=== PATIENT | male | born 1965 | race Caucasian/White ===

== ENCOUNTER 2016-12-05 06:53 | Observation (INO) | payer BC ==
--- NOTE | 2016-12-02 10:53 | PREOP HP ---
DATE OF SERVICE: 12/05/2016 HISTORY OF PRESENT ILLNESS: The patient is a 51-year-old man, who is having difficulty with low back pain and pain which radiates in the left lateral thigh and leg. The problem started in 2002. He said he underwent a fusion at that time, but it did not help him. He rates his pain as a 7/10. Sitting or standing for too long, exacerbates his pain. He did get relief by lying down. He takes morphine. Epidural steroid injections and physical therapy have been, if no help. He does use a cane with ambulation. When I saw him last, I ordered a lumbar myelogram to help elucidate the situation. PAST MEDICAL HISTORY: Angina, arthritis, gout, chest pain, headaches/migraines, head/neck injury, heart trouble, MANAGED CARE MANAGER, hypertension, parathyroid disease, ____ infection, swelling of limbs. PAST SURGICAL HISTORY: Lumbar surgery at L4-L5 in ____, lumbar surgery at L5-S1 in 2002, sphincterotomy in 2011 and cardiac ablation in 2012. FAMILY HISTORY: Aneurysm, heart disease, hypertension, NH at an early age, migraine headaches and spine problems. SOCIAL HISTORY: . Rarely exercises, denies substance abuse. Former smoker. Drinks alcohol one to two times per month. Drinks soda daily. ALLERGIES: No known drug allergies. CURRENT MEDICATIONS: Metoprolol, duloxetine, pravastatin, morphine, hydrochlorothiazide and baby aspirin. REVIEW OF SYSTEMS: A 12-point review of systems was obtained and is noncontributory except for that mentioned above. PHYSICAL EXAMINATION: NEUROSURGERY EXAMINATION: GENERAL APPEARANCE: Alert, pleasant, no acute distress. HEAD: Normocephalic and atraumatic. SKIN: Warm and dry. MUSCULOSKELETAL: Lumbar paraspinal muscle bulk is normal, restricted range of motion of lumbar spine, [id number] tenderness of lower lumbar spine with palpation, normal range of motion of the lower extremities bilaterally. EXTREMITIES: No clubbing, cyanosis, or edema. NEUROLOGIC: Alert and oriented x 3, normal recent and remote memory, strength 5/5 in bilateral lower extremities, sensory was intact to light touch in the lower extremities bilaterally, reflexes were trace and symmetric in the bilateral lower extremities, straight leg raising on the left was associated with left buttock pain, normal gait. IMAGING: Reviewed. I reviewed a lumbar myelogram and post-myelogram CT scan. On those studies, there appeared to be a left S1 nerve root swelling. At L5-S1, there was a 2 mm degenerative retrolisthesis. There was a chronic disk herniation, which causes impression and posterior displacement of the left S1 nerve root. ASSESSMENT: 1. Intervertebral disk disorder with radiculopathy, lumbosacral. 2. Spinal stenosis, lumbosacral region. PLAN: I feel the problems at L5-S1 are responsible for some portion of his pain. He does appear to have a solid fusion at L4-L5. I have recommended removal of hardware at L4-L5 combined with the microsurgery at L5-S1 to decompress the left S1 nerve root. I discussed this with him in detail. I also explained that another option, which was reasonable would be for him to have spinal cord stimulator placed. He would like to proceed with surgery. We will make the arrangements. ANGELITA DESAI MD DR: ANGEL/yeison JOB#: [id number] / [id number]
[~2016-12-05] VITALS: Ht 175.3 cm; Wt 127.5 kg
[2016-12-05] VITALS (11 sets, daily range): BP systolic 86–111; BP diastolic 37–62
[~2016-12-05 06:53] MED LIST: DULO60CA6 PO; FEXO180T81 PO; HYDR25TA9 PO; METO50TA2 PO; MORP30TA3 PO; PRAV40TA2 PO
[2016-12-05] MEDS ORDERED: IV RINGERS,LACTATED 1000ML 1,000 ML IV SCH (07:00)
[2016-12-05] MEDS ORDERED: fentaNYL PF VIAL 100 MCG/2 ML VIAL IV PRN ×2 (07:00→12:00)
[2016-12-05] MEDS ORDERED: LIDOCAINE 1% 1 ML SYRINGE. ID PRN (07:00)
[2016-12-05] MEDS ORDERED: HYDROmorphone 2 MG/ML VIAL IV PRN (07:00)
[2016-12-05] MEDS ORDERED: ONDANSETRON PF 4 MG/2 ML VIAL. IV PRN ×2 (07:00→12:00)
[2016-12-05] MEDS ORDERED: PROCHLORPERAZINE 10 MG/2 ML VIAL. IV PRN (07:00)
[2016-12-05] MEDS ORDERED: MORPHINE SULFATE 2 MG/ML DISP.SYRIN. IV PRN (07:00)
[2016-12-05] MEDS ORDERED: BUPIVAC MPF-EPI 0.5%-1:200000 30 ML VIAL. ONE (07:21)
[2016-12-05] MEDS ORDERED: GELATIN SPONGE SIZE 100. ONE (07:21)
[2016-12-05] MEDS ORDERED: KETOROLAC 60 MG/2 ML INJ FOR OR. ONE (07:21)
[2016-12-05] MEDS ORDERED: THROMBIN TOPICAL 20,000 UNIT SPRAY.SYRN KIT TP ONE (07:22)
[2016-12-05] MEDS ORDERED: IV RINGERS,LACTATED 1000ML 1,000 ML IV ONE (07:45)
[2016-12-05] MEDS ORDERED: BACITRACIN 50,000 UNIT in IV NORMAL SALINE 1000ML BAG 1,000 ML IRR ONE (08:00)
[2016-12-05] MEDS ORDERED: REMIFENTANIL 2 MG VIAL. IV ONE (08:22)
[2016-12-05] MEDS ORDERED: fentaNYL PF VIAL 250 MCG/5 ML VIAL ONE (08:22)
[2016-12-05] MEDS ORDERED: MIDAZOLAM HCL/PF 2 MG/2 ML VIAL. ONE (08:22)
[2016-12-05] MEDS ORDERED: ONDANSETRON PF 4 MG/2 ML VIAL. ONE (08:23)
[2016-12-05] MEDS ORDERED: LIDOCAINE 2% 100 MG/5 ML SYRINGE. ONE (08:23)
[2016-12-05] MEDS ORDERED: PROPOFOL 50 ML IV ONE (08:23)
[2016-12-05] MEDS ORDERED: DEXAMETHASONE SOD PHOS 20 MG/5 ML VIAL. ONE (08:23)
[2016-12-05] MEDS ORDERED: PROPOFOL 20 ML IV ONE (08:23)
[2016-12-05] MEDS ORDERED: ROCURONIUM 50 MG/5 ML VIAL. ONE (08:26)
[2016-12-05] MEDS ORDERED: MINERAL OIL/PETROLATUM,WHITE OPHTH OINT 3.5GM TUBE. ONE (08:27)
[2016-12-05] MEDS ORDERED: SCOPOLAMINE 1.5MG PATCH. TD ONE ×2 (08:35→08:45)
[2016-12-05] MEDS ORDERED: KETAMINE HCL 500 MG/10 ML VIAL. ONE (09:04)
[2016-12-05] MEDS ORDERED: ePHEDrine PF IN SALINE 50 MG/5 ML DISP.SYRIN IV ONE (09:46)
[2016-12-05] MEDS ORDERED: PHENYLEPHRINE 10 MG/ML VIAL. ONE ×2 (09:50)
[2016-12-05] MEDS ORDERED: GLYCOPYRROLATE 1 MG/5 ML VIAL. ONE (11:22)
[2016-12-05] MEDS ORDERED: NEOSTIGMINE METHYLSULFATE 5 MG/5 ML SYRINGE. ONE (11:22)
[2016-12-05] MEDS ORDERED: CALCIUM CARBONATE 500 MG TAB.CHEW PO PRN (12:00)
[2016-12-05] MEDS ORDERED: ACETAMINOPHEN 325 MG TABLET. PO PRN (12:00)
[2016-12-05] MEDS ORDERED: MAG HYDROX/ALUMINUM HYD/SIMETH 30 ML ORAL.SUSP PO PRN (12:00)
[2016-12-05] MEDS ORDERED: diphenhydrAMINE 50 MG/ML VIAL IV PRN (12:00)
[2016-12-05] MEDS ORDERED: MAGNESIUM HYDROXIDE 2,400 MG/30 ML ORAL.SUSP. PO PRN (12:00)
[2016-12-05] MEDS ORDERED: diphenhydrAMINE HCL 25 MG CAPSULE PO PRN (12:00)
[2016-12-05] MEDS ORDERED: ZOLPIDEM 5 MG TABLET. PO PRN (12:00)
[2016-12-05] MEDS ORDERED: 0.9 % SODIUM CHLORIDE 10 ML DISP.SYRIN. IV PRN (12:00)
[2016-12-05] MEDS: fentaNYL PF VIAL 100 MCG/2 ML VIAL IV PRN ×5 (12:29→14:38)
--- NOTE | 2016-12-05 12:53 | OP ---
DATE OF SURGERY: 12/05/2016 PREOPERATIVE DIAGNOSIS: Recurrent herniated disc L5-S1 with hypertrophic facet and nerve root compression. POSTOPERATIVE DIAGNOSIS: Recurrent herniated disc L5-S1 with hypertrophic facet and nerve root compression. OPERATION PERFORMED: Hemilaminotomy and microdiscectomy L5-S1, left. The operation done with EMG monitoring, fluoroscopy, microscopic dissection. SURGEON: Feliz Desai M.D. BRANCH OFFICE ADMINISTRATOR: Bashir Ramirez MD, assisted with surgery, assisted with the exposure, the micro decompression and microdiscectomy as well as the closure. OPERATIVE INDICATIONS: The patient is a very pleasant 51-year-old man who in the past had an instrumented fusion at L4-L5 along with microdisc surgery at L5- S1 on the left. He did well from that surgery, but then developed intractable recurrent pain and was found to have left-sided S1 nerve root swelling on the imaging studies. He failed conservative measures. I recommended lumbar microsurgery. I spoke with him about the surgery and the risks involved. He understood and he wished to go ahead. DESCRIPTION OF PROCEDURE: Following general endotracheal anesthesia, the patient was positioned prone on the Roshan table. His lumbar region was prepped and draped in standard fashion. SHLOMO hose and AV impulse boots were applied for DVT prophylaxis. A microscope was draped. Fluoroscopy was draped and brought into field. Monitoring was established. Ancef 2 grams were given less than 1 hour prior to initiation of surgery. Using fluoroscopic guidance, an incision was made over the L5-S1 interspace and was somewhat slightly superiorly to that to expose the hardware at L4-L5 is necessary to remove. I dissected down to the fascia, which I opened and reflected to the left, I placed a [place] micro disc retractor. I was able to position the retractor and such a way that I did not have to remove the hardware and I had an excellent exposure. I entered and switching to a Little retractor to gain better exposure brought in the microscope and the remainder of surgery done with microscope using microscopic technique. I enlarged his previous hemilaminotomy superiorly, laterally and inferiorly. There was significant scarring over the dura and the exiting S1 root and I worked down and exposed the root and the lateral edge of the dura. I gently reflected this medially exposing a large chronic calcified herniated disc. There were some soft component and I incised the ligament annulus and I performed the discectomy and as I worked, the root became much more free and mobile. I explored carefully. I irrigated copiously, explored carefully and I assured myself that there were no other issues that need to be addressed. I did enlarge previous foraminotomy inferiorly. I did remove thickened ligamentum flavum from the outer aspect of the dura with this lateral aspect and I felt that I had an excellent decompression. I removed the retractor. Hemostasis was excellent. I closed the fascia with absorbable sutures after irrigation. The fat was closed, the adipose tissue was closed in separate layer and the skin was closed with 4-0 subcuticular stitch. The surgery went very well. I was quite pleased with the operation. FELIZ DESAI MD DR: ANGEL/yeison JOB#: [id number] / [id number] ANDRA
[2016-12-05] MEDS: POTASSIUM CL 20MEQ D5-0.45NACL 1,000 ML IV SCH (14:37)
[2016-12-05] MEDS: METHOCARBAMOL 750 MG TABLET PO SCH ×2 (14:38→21:42)
[2016-12-05] MEDS: METOPROLOL TART IMMED RELEASE 50 MG TABLET. PO SCH ×2 (15:00→21:00)
[2016-12-05] MEDS ORDERED: DULoxetine HCL 30 MG CAPSULE.DR PO SCH (21:00)
[2016-12-05] MEDS ORDERED: ATORVASTATIN CALCIUM 10 MG TABLET. PO SCH (21:00)
[2016-12-05] MEDS: MORPHINE ER 30 MG TABLET.ER PO SCH (21:43)
[2016-12-05] MEDS: DOCUSATE SODIUM 100 MG CAPSULE. PO SCH (21:43)
[2016-12-06] MEDS: POTASSIUM CL 20MEQ D5-0.45NACL 1,000 ML IV SCH (01:12)
[2016-12-06 03:00] VITALS: BP 97/56
--- NOTE | 2016-12-06 05:00 | ACF ---
Admission Forms Criteria MUSCULOSKELETAL DISEASE GRG Clinical Indications for Admission to Inpatient Care (Place 'X' for any and all applicable criteria): Hospital admission is needed for appropriate care of the patient because of 1 or more of the following: [ ]I. Fracture, dislocation, or other musculoskeletal injury requiring inpatient care(medical) as indicated by 1 or more of the following(4)(5)(6)(7) [ ]a) Vertebral fracture requiring observation for instability or neurologic compromise (8) [ ]b) Compartment syndrome (proven or cannot be ruled out during observation level of care) (9) [ ]c) Limb-threatening injury [ ]d) Major injury requiring inpatient stabilization such as traction initiation or external fixation before internal fixation or closure of complex or open fracture [ ]e) Major injury requiring inpatient treatment after emergency or observation level care (as appropriate) [ ]f) Severe pain requiring acute inpatient management [ ]g) Injury with suspicion of abuse or neglect (eg., child, dependent elderly) [ ]II. Newly diagnosed or suspected bone, joint, or orthopedic device infection (e.g., osteomyelitis, septic arthritis) needing 1 or more of the following(1)(2)(3) [ ]a) IV antibiotics that cannot be initiated in other than inpatient setting (e.g., patient too unstable or home infusion not available) [ ]b) Device removal or replacement [ ]c) Bone or soft tissue debridement [ ]d) Joint drainage (drain placement or repetitive aspirations) [ ]III. Severe rheumatologic disease (e.g., systemic lupus erythematosus, rheumatoid arthritis) with complications or comorbidities (Also use Optimal Recovery Care Criteria or General Recovery Criteria as appropriate on the basis of predominant condition), including 1 or more of the following( 10)(11)(12)(13) [ ]a) Severe infection (e.g., CHARGE PREPARATION TECHNICIAN infection, sepsis) (14) [ ]b) Respiratory complications, including 1 or more of the following : [ ]i) Pleural effusion with respiratory compromise [ ]ii) Pulmonary hypertension with congestive failure [ ]iii) Respiratory failure [ ]iv) Pulmonary hemorrhage (15) [ ]c) Hematologic disease, including 1 or more of the following: [ ]i) Coagulopathy with bleeding [ ]ii) Thrombosis with hypercoagulable state [ ]iii) Thrombotic thrombocytopenic purpura [ ]d) Cerebritis with seizures, psychosis, or other severe abnormalities [ ]e) Vertebral destruction with monitoring needed for cervical myelopathy& possible respiratory compromise [ ]f) Exacerbation that requires inpatient treatment (e.g., intravenous immunosuppression) (16) [ ]g) Acute renal failure [ ]h) Cerebritis with seizures, psychosis, Altered mental status, or other neurologic abnormalities [ ]i) Pericardial effusion with tamponade [ ]j) Vertebral destruction, with monitoring needed for cervical myelopathy and possible respiratory compromise [ ]IV. Severe vasculitis with complications or comorbidities (Also use Optimal Recovery Care Criteria General Recovery Criteria as appropriate on the basis of predominant condition), including 1 or more of the following(11)(12)(17)(18)(19)(20) [ ]a) Exacerbation that requires inpatient treatment (e.g., intravenous immunosuppression) (19)(21) [ ]b) Pulmonary hemorrhage (15) [ ]c) CHARGE PREPARATION TECHNICIAN vasculitis with seizures, psychosis, Altered mental status that is severe or persistent, or other severe abnormalities (22) [ ]d) Cerebral infarction [ ]e) Gastrointestinal ischemia [ ]f) Gangrene or threatened amputation [ ]g) Renal failure (16) [ ]h) Other significant complications of vasculitis ( eg., tissue or organ ischemia, organ dysfunction ) [ ]V. Severe myopathy as indicated by 1 or more of the following (28)(29) [ ]a) New onset of airway compromise or inability to swallow [ ]b) Respiratory deterioration with observation needed for impending respiratory failure [ ]c) Exacerbation that requires inpatient treatment (e.g., intravenous immunosuppression) [ ]. Severe crystal gout (arthropathy) indicated by 1 or more of the following (23)(24) [ ]a) Severe pain requiring acute inpatient management [ ]b) Exacerbation that requires inpatient treatment (e.g., intravenous treatment) [ ]VII.Rhabdomyolysis and 1 or more of the following (25)(26)(27) [ ]a) Acute renal failure [ ]b) Need for intravenous hydration after emergency or observation level care (as appropriate) [ ]c) Inability to maintain oral hydration [ ]d) Change in mental status [ ]e) Electrolyte abnormality that remains after emergency or observation level care (as appropriate) [ ]VIII Post amputation complication, as indicated by ANY ONE of the following [ ]a) Infection [ ]b) Dehiscence [ ]c) Myodesis failure [ ]IX. Severe pain requiring acute inpatient management due to musculoskeletal condition [ ]X. Musculoskeletal Disease and ALL of the following: [ ]a) Symptom or finding for which emergency and observation care have failed or are not considered appropriate (Use General Criteria: Observation Care as appropriate) [ ]b) Presence of ANY ONE of the following [ ]i) A General Admission Criteria [ ]ii) A Pediatric General Admission Criteria The original [facility] content created by [employer] has been revised. The portions of the content which have been revised are identified through the use of italic text or in bold, and [facility] has neither reviewed nor approved the modified material. All other unmodified content is copyright [facility]. Please see references footnoted in the original [facility] edition 2016 PÉREZ JEFFERSON December 06, 2016 05:00
[2016-12-06 07:00] VITALS: BP 103/67
[2016-12-06 08:32] VITALS: BP 103/67
[2016-12-06] MEDS: METOPROLOL TART IMMED RELEASE 50 MG TABLET. PO SCH (08:32)
[2016-12-06] MEDS: METHOCARBAMOL 750 MG TABLET PO SCH (08:34)
[2016-12-06] MEDS: MORPHINE ER 30 MG TABLET.ER PO SCH (08:35)
[2016-12-06] MEDS: DOCUSATE SODIUM 100 MG CAPSULE. PO SCH (08:35)
[2016-12-06] MEDS ORDERED: CETIRIZINE HCL 10 MG TABLET. PO SCH (09:00)
[2016-12-06] MEDS ORDERED: hydroCHLOROthiazide 25 MG TABLET PO SCH (09:00)
--- NOTE | 2016-12-06 10:04 | DISCH ---
DISCHARGE INSTRUCTIONS Condition on Discharge Condition on Discharge: Stable Activity After Discharge Activity Instructions for Disc: Activity as tolerated, Avoid exertion Other activity instructions: no driving for a week Bathing Instructions: Shower-keep dressing dry Lifting Instructions after Dis: No heavy lifting, No pulling or pushing, Do not lift >10 pounds Diet after Discharge Additional Diet Restrictions: resume home diet Wound Incision Care Wound/Incision Care: Ice to area for comfort Other wound/incision instructi: may remove dressing in 48 hrs if dry then may shower- no soaking Contacting the after DC Call your doctor for: Concerns you may have Follow-Up Follow up with: Dr. Desai's nurse in 2 weeks [phone] ANGELITA DESAI MD December 06, 2016 10:04
[2016-12-06] MEDS ORDERED: METH750T2 PO (10:06)
[2016-12-06] MEDS ORDERED: DOCU-27 PO (10:06)
--- NOTE | 2016-12-06 10:07 | PDOC ---
PROGRESS NOTES Subjective Subjective POD #1 Ambulating in szymanski leg pain resolved Objective Objective Vital Signs Date Time Temp Pulse Resp B/P (MAP) Pulse Ox O2 Delivery O2 Flow Rate FiO2 12/06/16 08:35 Nasal Cannula 12/06/16 08:32 72 103/67 12/06/16 07:50 1.0 12/06/16 07:00 98.3 98.3 12/06/16 07:00 18 95 Intake and Output 12/06/16 07:00 Intake Total 3030 ml Output Total 1075 ml Balance 1955 ml Intake Oral 480 ml IV Total 2550 ml Output Urine Total 1050 ml Estimated Blood Loss 25 ml # Voids 1 Physical Exam General: Alert, Oriented X3, Cooperative, No acute distress MUSCULOSKELETAL: Other (INGRAM) Neuro: Normal speech Psych/Mental Status: Mental status NL Skin: Other (dressing C,D,I, flat) Plan Plan of Care may dc home f/u 2 weeks Comment Review of Relevant I have reviewed the following items aidee (where applicable) has been applied. Labs Laboratory Tests Test 12/05/16 07:29 Potassium Level 3.3 mmol/L (3.5-5.1) Medications Current Medications Ondansetron HCl (Zofran) 4 mg PRN Q6HRS PRN IV NAUSEA/VOMITING; Start 12/05/16 at 07:00; Stop 12/05/16 at 18:00; Status DC Fentanyl Citrate (Fentanyl 2ml Vial) 25 mcg PRN Q5MIN PRN IV MILD PAIN; Start 12/05/16 at 07:00; Stop 12/05/16 at 18:00; Status DC Fentanyl Citrate (Fentanyl 2ml Vial) 50 mcg PRN Q5MIN PRN IV MODERATE PAIN Last administered on 12/05/16t 14:38; Start 12/05/16 at 07:00; Stop 12/05/16 at 18: 00; Status DC Morphine Sulfate 1 mg PRN Q10MIN PRN IV SEVERE PAIN; Start 12/05/16 at 07:00; Stop 12/05/16 at 18:00; Status DC Ringer's Solution 1,000 ml @ 30 mls/hr Q24H IV ; Start 12/05/16 at 07:00; Stop 12/05/16 at 18:59; Status Cancel Lidocaine HCl 2 ml PRN 1X PRN ID PRIOR TO IV START; Start 12/05/16 at 07:00; Stop 12/05/16 at 18:00; Status DC Hydromorphone HCl (Dilaudid) 0.5 mg PRN Q10MIN PRN IV SEV PAIN, Second choice; Start 12/05/16 at 07:00; Stop 12/05/16 at 18:00; Status DC Prochlorperazine Edisylate (Compazine) 5 mg PACU PRN PRN IV NAUSEA, MRX1; Start 12/05/16 at 07:00; Stop 12/05/16 at 18:00; Status DC Cefazolin Sodium/ Dextrose 50 ml @ 100 mls/hr 1X PREOP PRN IV Prior to Surgery Last administered on 12/05/16 09:02; Start 12/05/16 at 08:00 Bacitracin 21764 unit/Sodium Chloride 1,000 ml @ 1,000 mls/hr 1X PERIOP ONCE IRR Last administered on 12/05/16 09:36; Start 12/05/16 at 08:00; Stop 12/05/16 at 08:59; Status DC Bupivacaine HCl/ Epinephrine Bitart (Sensorcain-Mpf Epi 0.5%-1:[id number]) 30 ml STK -MED ONCE .ROUTE Last administered on 12/05/16 09:36; Start 12/05/16 at 07:21; Stop 12/05/16 at 07:22; Status DC Gelatin (Gelfoam Size 100) 1 each STK-MED ONCE .ROUTE Last administered on 12/05 09:36; Start 12/05/16 at 07:21; Stop 12/05/16 at 07:22; Status DC Ketorolac Tromethamine (Toradol For Or Only) 60 mg STK-MED ONCE .ROUTE Last administered on 12/05/16 09:36; Start 12/05/16 at 07:21; Stop 12/05/16 at 07:22; Status DC Thrombin 20,000 unit STK-MED ONCE TP Last administered on 12/05/16 09:36; Start 12/05/16 at 07:22; Stop 12/05/16 at 07:23; Status DC Ringer's Solution 1,000 ml @ 75 mls/hr 1X ONCE IV Last administered on 07:44; Start 12/05/16 at 07:45; Stop 12/05/16 at 21:04; Status DC Midazolam HCl (Versed) 2 mg STK-MED ONCE .ROUTE ; Start 12/05/16 at 08:22; Stop 12/05/16 at 08:23; Status DC Remifentanil HCl (Ultiva) 2 mg STK-MED ONCE IV ; Start 12/05/16 at 08:22; Stop at 08:23; Status DC Fentanyl Citrate (Fentanyl 5ml Vial) 250 mcg STK-MED ONCE .ROUTE ; Start at 08:22; Stop 12/05/16 at 08:23; Status DC Propofol 20 ml @ As Directed STK-MED ONCE IV ; Start 12/05/16 at 08:23; Stop 12/05 at 08:24; Status DC Lidocaine HCl (Lidocaine HCl 2% Abboject) 100 mg STK-MED ONCE .ROUTE ; Start 12/05/16 at 08:23; Stop 12/05/16 at 08:24; Status DC Propofol 50 ml @ As Directed STK-MED ONCE IV ; Start 12/05/16 at 08:23; Stop 12/05 at 08:24; Status DC Dexamethasone Sodium Phosphate (Decadron) 20 mg STK-MED ONCE .ROUTE ; Start 12/05 at 08:23; Stop 12/05/16 at 08:24; Status DC Ondansetron HCl (Zofran) 4 mg STK-MED ONCE .ROUTE ; Start 12/05/16 at 08:23; Stop 12/05/16 at 08:24; Status DC Rocuronium [place] (Zemuron) 50 mg STK-MED ONCE .ROUTE ; Start 12/05/16 at 08:26 ; Stop 12/05/16 at 08:27; Status DC Multi-Ingred Cream/Lotion/Oil/ Oint (Artificial Tears Eye Oint) 7 marsha STK-MED ONCE .ROUTE ; Start 12/05/16 at 08:27; Stop 12/05/16 at 08:28; Status DC Scopolamine (Transderm-Scop) 1 patch 1X ONCE TD Last administered on 12/05/16t 08:00; Start 12/05/16 at 08:45; Stop 12/05/16 at 08:46; Status DC Scopolamine (Transderm-Scop) 1 patch STK-MED ONCE TD ; Start 12/05/16 at 08:35; Stop 12/05/16 at 08:36; Status DC Ketamine HCl 500 mg STK-MED ONCE .ROUTE ; Start 12/05/16 at 09:04; Stop 12/05/16 at 09:05; Status DC Ephedrine Sulfate 50 mg STK-MED ONCE IV ; Start 12/05/16 at 09:46; Stop 12/05/16 at 09:47; Status DC Phenylephrine HCl (Tyson-Synephrine Inj) 10 mg STK-MED ONCE .ROUTE ; Start at 09:50; Stop 12/05/16 at 09:51; Status DC Phenylephrine HCl (Tyson-Synephrine Inj) 10 mg STK-MED ONCE .ROUTE ; Start at 09:50; Stop 12/05/16 at 09:51; Status DC Glycopyrrolate (Robinul) 1 mg STK-MED ONCE .ROUTE ; Start 12/05/16 at 11:22; Stop 12/05/16 at 11:23; Status DC Neostigmine Methylsulfate 5 mg STK-MED ONCE .ROUTE ; Start 12/05/16 at 11:22; Stop 12/05/16 at 11:23; Status DC Hydrochlorothiazide (Hydrodiuril) 25 mg DAILY PO ; Start 12/06/16 at 09:00 Metoprolol Tartrate (Lopressor) 50 mg BID PO ; Start 12/05/16 at 15:00 Morphine Sulfate (Ms Contin) 30 mg BID PO Last administered on 12/06/16 08:35; Start 12/05/16 at 21:00 Duloxetine HCl (Cymbalta) 60 mg QHS PO Last administered on 12/05/16 21:42; Start 12/05/16 at 21:00 Cetirizine HCl (Zyrtec) 10 mg DAILY PO Last administered on 12/06/16 08:34; Start 12/06/16 at 09:00 Atorvastatin Calcium (Lipitor) 10 mg QHS PO Last administered on 12/05/16 21:42 ; Start 12/05/16 at 21:00 Fentanyl Citrate (Fentanyl 2ml Vial) 50 mcg PRN Q2HR PRN IV PAIN Last administered on 12/05/16 20:17; Start 12/05/16 at 12:00 Acetaminophen (Tylenol) 650 mg PRN Q6HRS PRN PO MILD PAIN / TEMP; Start at 12:00 Al Hydroxide/Mg Hydroxide (Mylanta Plus Xs) 30 ml PRN Q3HRS PRN PO HEARTBURN / GAS; Start 12/05/16 at 12:00 Calcium Carbonate/ Glycine (Tums) 500 mg PRN Q3HRS PRN PO INDIGESTION; Start at 12:00 Diphenhydramine HCl (Benadryl) 25 mg PRN Q6HRS PRN PO ITCHING; Start 12/05/16 at 12:00 Diphenhydramine HCl (Benadryl) 25 mg PRN Q6HRS PRN IV ITCHING; Start 12/05/16 at 12:00 Zolpidem Tartrate (Ambien) 5 mg PRN QHS PRN PO INSOMNIA, MAY REPEAT IN 1HR; Start 12/05/16 at 12:00 Sodium Chloride (Normal Saline Flush) 3 ml QSHIFT PRN IV AFTER MEDS AND BLOOD DRAWS; Start 12/05/16 at 12:00 Potassium Chloride/Dextrose/ Sod Cl 1,000 ml @ 75 mls/hr [id number] IV Last administered on 12/06/16 01:12; Start 12/05/16 at 13:00 Methocarbamol (Robaxin) 750 mg TID PO Last administered on 12/06/16 08:34; Start 12/05/16 at 14:00 Docusate Sodium (Colace) 100 mg BID PO Last administered on 12/05/16 21:43; Start 12/05/16 at 21:00 Magnesium Hydroxide (Milk Of Magnesia) 2,400 mg PRN Q12HR PRN PO CONSTIPATION; Start 12/05/16 at 12:00 Ondansetron HCl (Zofran) 4 mg PRN Q6HRS PRN IV NAUESA, 1ST CHOICE; Start at 12:00 Active Scripts Active Reported Jia Allergy (Fexofenadine Hcl) 180 Mg Tablet 180 Mg PO DAILY Morphine Sulfate Er (Morphine Sulfate) 30 Mg Tablet.er 1 Tab PO BID Hydrochlorothiazide Tablet (Hydrochlorothiazide) 25 Mg Tablet 25 Mg PO DAILY Cymbalta (Duloxetine Hcl) 60 Mg Capsule.dr 60 Mg PO HS Pravastatin Sodium 40 Mg Tablet 1 Tab PO QHS Metoprolol Tartrate 50 Mg Tablet 50 Mg PO DAILY Vitals/I & O Vital Sign - Last 24 Hours 12/05/16 12/05/16 12/05/16 12/05/16 11:39 11:39 11:54 12:09 Temp 99.1 99.1 Pulse 104 108 94 Resp 16 18 16 B/P (MAP) 158/89 147/76 112/63 Pulse Ox 100 97 97 O2 Delivery Simple Mask Mask Simple Mask Room Air O2 Flow Rate 10 10 10 12/05/16 12/05/16 12/05/16 12/05/16 12:23 12:24 12:29 12:39 Temp 97.1 97.1 Pulse 84 90 Resp 16 18 18 B/P (MAP) 109/61 117/50 Pulse Ox 94 97 98 O2 Delivery Nasal Cannula Nasal Cannula Nasal Cannula Nasal Cannula O2 Flow Rate 2 3 2.0 3 12/05/16 12/05/16 12/05/16 12/05/16 12:41 12:54 13:03 13:09 Temp 97.8 97.8 Pulse 85 88 Resp 16 16 B/P (MAP) 118/58 102/63 Pulse Ox 97 97 97 96 O2 Delivery Nasal Cannula Nasal Cannula Nasal Cannula Nasal Cannula O2 Flow Rate 2.0 3 3.0 3 12/05/16 12/05/16 12/05/16 12/05/16 13:12 13:36 14:00 14:22 Temp 98.3 97.5 98.3 97.5 Pulse 93 81 Resp 18 22 B/P (MAP) 111/49 (69) 100/62 (75) Pulse Ox 97 94 93 O2 Delivery Nasal Cannula Nasal Cannula Nasal Cannula Nasal Cannula O2 Flow Rate 3.0 3.0 3.0 2.5 12/05/16 12/05/16 12/05/16 12/05/16 14:30 14:38 14:45 15:00 Pulse 88 85 85 B/P (MAP) 93/50 (64) 97/54 (68) 102/52 (69) Pulse Ox 92 94 95 94 O2 Delivery Nasal Cannula Nasal Cannula Nasal Cannula Nasal Cannula O2 Flow Rate 2.5 3.0 2.5 2.5 12/05/16 12/05/16 12/05/16 12/05/16 15:10 15:30 16:00 17:00 Pulse 81 80 85 B/P (MAP) 90/40 (57) 86/47 (60) 92/48 (63) Pulse Ox 94 93 94 92 O2 Delivery Nasal Cannula Nasal Cannula Nasal Cannula Nasal Cannula O2 Flow Rate 3.0 2.5 2.5 2.5 12/05/16 12/05/16 12/05/16 12/05/16 19:00 20:00 20:17 20:47 Temp 97.9 97.9 Pulse 0 Resp 18 16 16 B/P (MAP) 87/37 (54) Pulse Ox 95 92 O2 Delivery Nasal Cannula Nasal Cannula Nasal Cannula Nasal Cannula O2 Flow Rate 2.5 3.0 2.0 2.5 12/05/16 12/05/16 12/05/16 12/05/16 21:00 21:30 21:43 23:00 Temp 97.9 97.9 Pulse 75 50 75 Resp 16 18 B/P (MAP) 93/39 89/38 (55) 93/39 (57) Pulse Ox 95 92 O2 Delivery Nasal Cannula Nasal Cannula O2 Flow Rate 2.0 2.5 12/06/16 12/06/16 12/06/16 12/06/16 01:43 03:00 07:00 07:00 Temp 97.9 98.3 98.3 97.9 98.3 98.3 Pulse 73 72 Resp 16 18 18 B/P (MAP) 97/56 (70) 103/67 (79) Pulse Ox 92 95 95 O2 Delivery Nasal Cannula Nasal Cannula Room Air O2 Flow Rate 2.5 2.5 2.0 12/06/16 12/06/16 12/06/16 07:50 08:32 08:35 Pulse 72 B/P (MAP) 103/67 O2 Delivery Nasal Cannula Nasal Cannula O2 Flow Rate 1.0 Intake and Output 12/05/16 12/05/16 12/06/16 15:00 23:00 07:00 Intake Total 2550 ml 120 ml 360 ml Output Total 175 ml 300 ml 600 ml Balance 2375 ml -180 ml -240 ml ANGELITA DESAI MD December 06, 2016 10:07
--- NOTE | 2016-12-07 16:31 | PATHOLOGY ---
PATHOLOGY REPORT * * * * * * * * FINAL DIAGNOSIS: Segments of fibrocartilaginous and skeletal muscle tissue and bone, lumbar disc and decompression: - Degenerative changes of fibrocartilaginous tissue. COMMENT: There is no evidence of an acute inflammatory process or malignancy. (JPM:csd; d/t: 12/07/2016) REPORT ELECTRONICALLY SIGNED BY: Kenny Little M.D. DATE/TIME: 12/07/2016 16:30 * * * * * * * * GROSS PATHOLOGY: Received in formalin labeled "Hank Amaral, lumbar disc and decompression" are multiple segments of anderson, rubbery, and gritty tissue admixed with bone. The specimen measures 3.8 x 3.6 x 1.0 cm in aggregate dimensions. The tissue is submitted representatively in cassette A1, following decalcification. (CAA; 12/06/2016) INITIAL CPT CODE(S): A; 64424, 07343 Professional services performed [place] [facility] [place] [address] Technical services performed by [facility] at [address] [place] [address]. SPECIMEN(S) RECEIVED: A.Lumbar decompression and disc CLINICAL HISTORY: Lumbar herniated disc with stenosis and radiculopathy PATIENT: HANK AMARAL /AGE: 310/16/1965 (Age: 51) PATIENT #: [id number] ALT CASE #: SPECIMEN COLLECTION DATE: 12/05/2016 SPECIMEN RECEIVED DATE: 12/05/2016 [facility] - [address] [place] [address] - PHONE: [phone] * * * END OF REPORT * * *
== END 2016-12-06 11:10 | disposition home or self-care (01) ==
LOC: SURG 06:53 → 4 NORTH 11:57
PROVIDERS: ADMIT Neurological Surgery; ATTEND Neurological Surgery
DX: M54.10 Radiculopathy, site unspecified (principal); M48.07 Spinal stenosis, lumbosacral region; I10 Essential (primary) hypertension; M10.9 Gout, unspecified; Z87.891 Personal history of nicotine dependence
CPT/HCPCS: 36415; 63042; 76000; 84132; 88304; 88311; 96374; 96376; 97162; 97530; G0378; G0379; G8978; G8979; G8980; J1100; J1885; J2250; J2405; J2704; J2710; J3010; J3490; J7030; J7120